=== PATIENT | female | born 1970 | race Caucasian/White ===

== ENCOUNTER 2017-08-13 18:22 | Emergency (ER) | payer BC ==
[2017-08-13] MEDS ORDERED: Sodium Chloride 0.9% 1000 ML 1,000 ML IV STA (19:22)
[2017-08-13] MEDS ORDERED: Sodium Chloride 0.9% 1000 ML 1,000 ML ONE (19:26)
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
[2017-08-13 20:02] LABS: Hematocrit 39.1 % (35-47); Hemoglobin 13.3 gm/dl (12.0-16.0); Mean Cell Volume 86.3 fl (78-100); Mean Corpuscular Hemoglobin 29.4 pg (26-32); Mean Platelet Volume 10.3 fl (6-9.5); Platelet Count 185 K/mm3 (150-450); Red Blood Count 4.53 M/mm3 (4.1-5.4); Red Cell Distribution Width 13.1 % (11.5-14.0); White Blood Count 20.6 K/mm3 (4.0-10.5)
[2017-08-13 20:27] LABS: ALBUMIN 3.6 g/dL (3.4-5.0); ALKALINE PHOSPHATASE 55 U/L (46-116); ANION GAP 14.4 MEQ/L (5-15); Appearance CLEAR (CLEAR); BLOOD UREA NITROGEN 12 mg/dL (9-20); CHLORIDE 102 mEq/L (98-107); Calcium 8.8 mg/dL (8.5-10.1); Carbon Dioxide 24.3 mEq/L (21-32); Creatinine 1 0.94 mg/dl (0.55-1.30); Glucose 103 MG/DL (70-110); Potassium 3.5 mEq/L (3.5-5.1); SGOT/AST 16 U/L (15-37); SGPT/ALT 26 U/L (12-78); SODIUM 137 mEq/L (136-145); Total Protein 7.3 gm/dL (6.4-8.2)
[2017-08-13 20:28] LABS: Bilirubin NEGATIVE (NEGATIVE); Blood NEGATIVE Ery/ul (0-5); Glucose NEGATIVE (NEGATIVE); Ketones NEGATIVE (NEGATIVE); Leukocyte Esterase NEGATIVE (NEGATIVE); Nitrite NEGATIVE (NEGATIVE); Ph 6.5 (5-6); Protein,Urine Dip NEGATIVE (Negative); Specific Gravity 1.005 (1.005-1.025); Urobilinogen NORMAL mg/dL (0-1)
[2017-08-13 20:34] LABS: Mono Screen WEAKLY POSITIVE (Negative)
[2017-08-13 20:38] LABS: HCG QUALITATIVE,SERUM NEGATIVE (Negative)
[2017-08-13 20:48] LABS: BAND 1 % (0.0-2.0); Lymphocytes 9 % (24-44); Monocyte 2 % (0.0-12.0); Neutrophils 88 % (36.0-66.0); Platelet Estimate NORMAL (NORMAL); Total Cells Counted 100
[2017-08-13 20:55] LABS: INFLUENZA A NEGATIVE (NEGATIVE); INFLUENZA B NEGATIVE (NEGATIVE); RESPIRATORY SYNCTIAL VIRUS NEGATIVE (Negative)
[2017-08-13] MEDS ORDERED: ROCEPHIN 1 Gm-D5w 50 ml Bag** 1 G/50 ML IVPB IV STA (21:06)
[2017-08-13] MEDS ORDERED: ROCEPHIN 1 Gm-D5w 50 ml Bag** 1 G/50 ML IVPB IV ONE (21:13)
[2017-08-13 21:36] VITALS: BP 126/74; PULSE 76; O2SAT 98
--- NOTE | 2017-08-14 10:17 | XRAY ---
Exam: Two-view chest from 08/13/2017. Comparison: Two-view chest from 04/16/[address] of the chest with IV contrast from 04/16/2012. Indication: Fever. Findings: Upright PA and lateral chest films are submitted for evaluation. The heart size and contour are normal. The leonel and mediastinal structures appear unremarkable. The lungs are adequately inflated. The anterior aspect of the right hemidiaphragm is slightly higher than the left hemidiaphragm. There is a sclerotic density overlying the posterior lung base and approximate level of the lower posterior T7 vertebral body which is known to represent a pleural-based calcified granuloma at the posterior medial left lower lung field on the CT study from 2011 (i.e. chronic). Incidentally, prior 1.2 cm in diameter soft tissue lung nodule abutting the dome of the right hemidiaphragm just anterior to the midpoint on the CT study of 04/16/2012 is not well seen on today's plain film study. This would suggest that this nodule probably represented a nonaggressive process. The remainder of the lung summers reveals no infiltrates, vascular congestion, pneumothorax, or pleural effusion. There is an oblique linear strand of scarring or subsegmental atelectasis overlying the lateral margin of the left hilum extending into the central aspect of the left upper lung field. No acute osseous process is seen. Impression: 1. No air space infiltrates to suggest focal pneumonia or other acute cardiopulmonary disease is seen. 2. Thin oblique strand of scarring or subsegmental atelectasis overlies the lateral margin of the left hilum extending into the central left upper lung field. 3. Other incidental findings, as discussed above.
== END 2017-08-13 21:37 | disposition home or self-care (01) ==
LOC: ED 18:22
DX: B27.90 Infectious mononucleosis, unspecified without complication (principal); N75.0 Cyst of Bartholin's gland
CPT/HCPCS: 36000; 36415; 71046; 80053; 81002; 84703; 85025; 86308; 87040; 87070; 87430; 87631; 93041; 96360; 96365; 99284; J0696

== ENCOUNTER 2021-12-12 10:06 | Emergency (ER) | payer BC ==
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
[2021-12-12] MEDS ORDERED: TYLENOL 325 MG PO STA (11:40)
[2021-12-12] MEDS ORDERED: TYLENOL 325 MG ONE (11:41)
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
[2021-12-12 12:22] VITALS: BP 122/72; PULSE 73; O2SAT 95
== END 2021-12-12 12:23 | disposition home or self-care (01) ==
LOC: ED 10:06
DX: S40.012A Contusion of left shoulder, initial encounter (principal); S70.02XA Contusion of left hip, initial encounter; S20.212A Contusion of left front wall of thorax, initial encounter; V49.40XA Driver injured in collision with unspecified motor vehicles in traffic accident, initial encounter; E78.5 Hyperlipidemia, unspecified; I10 Essential (primary) hypertension; Z79.899 Other long term (current) drug therapy
CPT/HCPCS: 71100; 72072; 72170; 73000; 73030; 99283; A9270-GY